=== PATIENT | male | born 1965 | race Caucasian/White ===

== ENCOUNTER → 2023-06-26 08:42 | Outpatient (CLI) | payer OTHER, SELFPAY ==
[2023-06-26 09:54] LABS: Add Manual Diff / Slide Review NO; Basophils Absolute Auto 0 /uL (0-100); Basophils Percent Auto 0.6 % (0-2); Eosinophils Absolute Auto 100 /uL (0-450); Eosinophils Percent Auto 1.5 % (2-4); Hematocrit 38.7 % (41-53); Hemoglobin 13.4 g/dL (13.5-17.5); Lymphocytes Absolute Auto 1500 /uL (1100-4500); Lymphocytes Percent Auto 23.4 % (25-40); Mean Corpuscular HGB Conc 34.6 % (30-36); Mean Corpuscular Hemoglobin 32.6 PG (26-34); Monocytes Absolute Auto 500 /uL (0-900); Monocytes Percent Auto 7.9 % (3-14); Neutrophils Absolute Auto 4400 /uL (1500-7000); Neutrophils Percent Auto 66.6 % (50-75); Platelet Count 205 X10^3/uL (150-400); Red Blood Cell Count 4.12 X10^6/uL (4.5-5.9); Red Cell Distribution Width 12.5 % (11.6-14.8); White Blood Cell Count 6.5 X10^3/uL (4.5-11.0)
[2023-06-26 10:22] LABS: Alanine Aminotransferase 19 IU/L (<50); Albumin 4.3 g/dL (3.5-5.0); Albumin Globulin Ratio 1.5 (1.0-2.8); Alkaline Phosphatase 53 U/L (38-126); Aspartate Aminotransferase 26 IU/L (17-59); BUN Creatinine Ratio 18.8 (6-22); Bilirubin Total 1.9 mg/dL (0.2-1.3); Blood Urea Nitrogen 19 mg/dL (9-20); Calcium 9.1 mg/dL (8.4-10.2); Carbon Dioxide 26 mmol/L (22-32); Chloride 104 mmol/L (98-107); Cholesterol 225 mg/dL (140-199); Estimated Glomerular Filt Rate > 60 mL/min (>60); Globulin 2.9 g/dL (1.7-4.1); Glucose 99 mg/dL (70-100); HDL Cholesterol 45 mg/dL (40-60); HEMOLYSIS < 15 (0-50); LDL Cholesterol Calculated 145 mg/dL (<100); Potassium 3.6 mmol/L (3.4-5.1); Sodium 139 mmol/L (137-145); Total Protein 7.2 g/dL (6.3-8.2); Triglycerides 173 mg/dL (35-150)
[2023-06-26 10:49] LABS: Prostate Specific Antigen 6.27 ng/mL (0.10-4.00)
== END ==
PROVIDERS: PCP Family Medicine; Referring Provider Family Medicine; Visit Provider Family Medicine
DX: Z00.00 Encounter for general adult medical examination without abnormal findings (principal); Z12.5 Encounter for screening for malignant neoplasm of prostate
CPT/HCPCS: 36415; 80053; 80061; 84153; 85025

== ENCOUNTER → 2023-08-03 16:37 | Outpatient (CLI) | payer OTHER, SELFPAY ==
[2023-08-03 17:20] LABS: Add Manual Diff / Slide Review NO; Basophils Absolute Auto 0 /uL (0-100); Basophils Percent Auto 0.8 % (0-2); Eosinophils Absolute Auto 100 /uL (0-450); Eosinophils Percent Auto 1.3 % (2-4); Hematocrit 39.1 % (41-53); Hemoglobin 13.5 g/dL (13.5-17.5); Lymphocytes Absolute Auto 1600 /uL (1100-4500); Lymphocytes Percent Auto 28.8 % (25-40); Mean Corpuscular HGB Conc 34.5 % (30-36); Mean Corpuscular Hemoglobin 32.8 PG (26-34); Monocytes Absolute Auto 400 /uL (0-900); Monocytes Percent Auto 6.7 % (3-14); Neutrophils Absolute Auto 3500 /uL (1500-7000); Neutrophils Percent Auto 62.4 % (50-75); Platelet Count 184 X10^3/uL (150-400); Red Blood Cell Count 4.11 X10^6/uL (4.5-5.9); Red Cell Distribution Width 12.6 % (11.6-14.8); White Blood Cell Count 5.5 X10^3/uL (4.5-11.0)
[2023-08-03 17:41] LABS: HEMOLYSIS < 15 (0-50); Iron 78 ug/dL (49-181)
[2023-08-03 17:51] LABS: Percent Iron Saturation 28 % (20-50); Total Iron Binding Capacity 280 ug/dL (261-462); Transferrin 230 mg/dL (206-381)
[2023-08-03 18:30] LABS: Vitamin B12 424 pg/mL (239-931)
[2023-08-06 09:28] LABS: PSA Free % 21.8 % (.); PSA, Total 2.2 ng/mL (0.0-4.0)
== END ==
LOC: LAB 16:38
PROVIDERS: PCP Family Medicine; Referring Provider Family Medicine; Visit Provider Family Medicine
DX: D64.9 Anemia, unspecified (principal); R97.20 Elevated prostate specific antigen [PSA]
CPT/HCPCS: 36415; 82607; 83540; 83550; 84153; 84154; 85025

== ENCOUNTER → 2024-02-08 16:23 | Outpatient (CLI) | payer OTHER, SELFPAY | PROVIDERS: PCP Family Medicine; Referring Provider Urology; Visit Provider Urology | DX: R97.20 Elevated prostate specific antigen [PSA] (principal) | CPT/HCPCS: 36415; 84153; 84154 ==

== ENCOUNTER → 2024-04-07 09:39 | Outpatient (CLI) | payer OTHER, SELFPAY | PROVIDERS: PCP Family Medicine; Visit Provider Urology | DX: N40.1 Benign prostatic hyperplasia with lower urinary tract symptoms (principal); N13.8 Other obstructive and reflux uropathy | CPT/HCPCS: 87086 ==

== ENCOUNTER → 2024-06-08 09:40 | Outpatient (CLI) | payer OTHER, SELFPAY ==
[2024-06-08 10:30] LABS: Add Manual Diff / Slide Review NO; Basophils Absolute Auto 0 /uL (0-100); Basophils Percent Auto 0.8 % (0-2); Eosinophils Absolute Auto 100 /uL (0-450); Eosinophils Percent Auto 1.5 % (2-4); Hematocrit 41.3 % (41-53); Hemoglobin 14.1 g/dL (13.5-17.5); Lymphocytes Absolute Auto 1000 /uL (1100-4500); Lymphocytes Percent Auto 24.8 % (25-40); Mean Corpuscular HGB Conc 34.2 % (30-36); Mean Corpuscular Hemoglobin 32.5 PG (26-34); Mean Corpuscular Volume 94.9 fL (80-100); Monocytes Absolute Auto 300 /uL (0-900); Monocytes Percent Auto 7.9 % (3-14); Neutrophils Absolute Auto 2600 /uL (1500-7000); Platelet Count 194 X10^3/uL (150-400); Red Blood Cell Count 4.36 X10^6/uL (4.5-5.9); Red Cell Distribution Width 12.1 % (11.6-14.8); White Blood Cell Count 3.9 X10^3/uL (4.5-11.0)
[2024-06-08 10:42] LABS: HEMOLYSIS < 15 (0-50); Iron 117 ug/dL (49-181)
[2024-06-08 10:45] LABS: Albumin 4.9 g/dL (3.5-5.0); Albumin Globulin Ratio 1.7 (1.0-2.8); Calcium 9.4 mg/dL (8.4-10.2); Carbon Dioxide 29 mmol/L (22-32); Chloride 100 mmol/L (98-107); Globulin 2.9 g/dL (1.7-4.1); Glucose 102 mg/dL (70-100); HDL Cholesterol 66 mg/dL (40-60); HEMOLYSIS < 15 (0-50); Potassium 4.4 mmol/L (3.4-5.1); Sodium 140 mmol/L (137-145); Total Protein 7.8 g/dL (6.3-8.2)
[2024-06-08 10:46] LABS: Alanine Aminotransferase 23 IU/L (<50); Alkaline Phosphatase 59 U/L (38-126); Aspartate Aminotransferase 26 IU/L (17-59); BUN Creatinine Ratio 21.7 (6-22); Bilirubin Total 1.5 mg/dL (0.2-1.3); Blood Urea Nitrogen 20 mg/dL (9-20); Cholesterol 196 mg/dL (140-199); Estimated Glomerular Filt Rate > 60 mL/min (>60); LDL Cholesterol Calculated 118 mg/dL (<100); Triglycerides 60 mg/dL (35-150)
[2024-06-08 10:54] LABS: Percent Iron Saturation 46 % (20-50); Total Iron Binding Capacity 252 ug/dL (261-462); Transferrin 232 mg/dL (206-381)
[2024-06-08 11:31] LABS: Vitamin B12 539 pg/mL (239-931)
[2024-06-09 12:12] LABS: PSA Free % 21.3 % (.); PSA, Total 3.8 ng/mL (0.0-4.0)
== END ==
PROVIDERS: PCP Family Medicine; Referring Provider Family Medicine; Visit Provider Family Medicine
DX: Z00.00 Encounter for general adult medical examination without abnormal findings (principal); N40.1 Benign prostatic hyperplasia with lower urinary tract symptoms; D64.9 Anemia, unspecified; N13.8 Other obstructive and reflux uropathy; E78.5 Hyperlipidemia, unspecified; R97.20 Elevated prostate specific antigen [PSA]
CPT/HCPCS: 36415; 80053; 80061; 82607; 83540; 83550; 84153; 84154; 85025

== ENCOUNTER 2025-01-07 17:36 | Emergency (ER) | payer OTHER, SELFPAY ==
[2025-01-07 17:44] VITALS: BP 116/66; PULSE 54; RESP 16; TEMP 37.4; O2SAT 100; BMI 21.7
--- NOTE | 2025-01-07 18:07 | ED.MALEGU ---
HPI - Male Genitourinary General Chief complaint: Urogenital-Male Stated complaint: Catheter Not Draining Properly, Blood In Urine Time Seen by Provider: 01/07/25 18:06 Source: patient Mode of arrival: Family Vehicle History of Present Illness HPI Narrative: 59-year-old male with history of BPH followed previously by local urologist Dr. Box who has retired, no prostate surgical interventions, was vacationing in [facility] and had urinary retention symptoms on Thursday 5 day ago, Vázquez catheter placed in [facility], returned to [facility] local area on Thursday 3 days ago, was planning to see local urologist Dr. Kiran in follow up, today had some urination around the tubing, and scant bloody appearance, no distraction of the tubing or local blunt trauma known. No fevers or chills. No flank pain. Some suprapubic discomfort. Related Data Home Medications ?Medication ?Instructions ?Recorded ?Confirmed ascorbic acid (vitamin C) 250 mg 250 mg PO DAILY 02/08/24 06/10/24 tablet cholecalciferol (vitamin D3) 25 25 mcg PO DAILY 02/08/24 06/10/24 mcg (1,000 unit) capsule ferrous sulfate 325 mg (65 mg 325 mg PO DAILY 02/08/24 06/10/24 iron) tablet (Feosol) multivitamin (Daily Multi-Vitamin 1 tab PO DAILY 02/08/24 06/10/24 tablet) omega-3 fatty acids-fish oil 360 1 cap PO DAILY 02/08/24 06/10/24 mg-1,200 mg capsule (Fish Oil) Previous Rx's ?Medication ?Instructions ?Recorded tamsulosin 0.4 mg capsule 0.4 mg PO DAILY #90 caps 02/08/24 tamsulosin 0.4 mg capsule 0.8 mg (2 x 0.4 mg) PO DAILY #180 04/12/24 caps cefdinir 300 mg capsule 300 mg PO BID 7 days #14 caps 01/07/25 Allergies Allergy/AdvReac Type Severity Reaction Status Date / Time No Known Drug Allergies Allergy Verified 01/07/25 17:52 Patient History Medical History (Updated 01/07/25 @ 21:04 by Karel Ortiz MD) Well adult exam Incomplete emptying of bladder History of tobacco use Secondhand smoke exposure Urinary retention BPH w urinary obs/LUTS History of BPH Anemia Elevated PSA Neck pain (~2003) Shingles (~2008) Chicken pox (~1972) Preventative health care Borderline hyperlipidemia Cervical spondylolysis Surgical History Hx of circumcision Anesthesia History of knee surgery (~1983) History of bilateral inguinal hernia repair (~2016) Family History Father History of heart disease Hyperlipidemia Hypertension Congestive heart failure Coronary artery disease Diabetes mellitus Grandfather Cancer Grandfather History of heart disease Mother Urinary tract infection Social History (Updated 03/16/24 @ 08:32 by Jose Mcmanus MA) marital status: number of children: 4 alcohol intake: never caffeine: Yes Type(s) of exercise: bicycling and running frequency: 3-4 times per week duration: 60-90 minutes/day Exam Narrative Exam Narrative: GENERAL: Well-developed patient, in mild distress. HEAD: Atraumatic. Normocephalic. EYES: Pupils equal round and reactive. Extraocular motions intact. No scleral icterus. No injection or drainage. ENT: Nose without bleeding, purulent drainage. Throat without erythema, tonsillar hypertrophy or exudate. Airway patent. NECK: Trachea midline. Non tender CARDIOVASCULAR: Regular rate and rhythm without murmurs, gallops, or rubs. RESPIRATORY: Clear to auscultation. Breath sounds equal bilaterally. No wheezes, rales, or rhonchi. GASTROINTESTINAL: Abdomen soft, non-tender, nondistended. : Vázquez catheter in place, leg bag without obvious blood, yellow fluid without clots in collection bag. Opaque tubing, no blood at meatus, unremarkable external genitalia without lesions, circumcised. EXTREMITIES: No edema or joint tenderness. BACK: Nontender without deformity or crepitance. No flank tenderness. NEURO: AOx3. Motor functions grossly nonfocal. SKIN: No rash or erythema of visible areas Initial Vital Signs Initial Vital Signs: Vital Signs Temperature 99.3 F 01/07/25 17:44 Pulse Rate 54 L 01/07/25 17:44 Respiratory Rate 16 01/07/25 17:44 Blood Pressure 116/66 01/07/25 17:44 Pulse Oximetry 100 01/07/25 17:44 Oxygen Delivery Method Room Air 01/07/25 17:44 Course Orders Ordered: Discontinued Medications Cefdinir (Cefdinir 300 Mg Capsule) 300 mg PO NOW ONE Stop: 01/07/25 21:05 Last Admin: 01/07/25 21:34 Dose: 300 mg Documented By: YOLA Vital Signs Vital signs: Vital Signs - 8 hr 01/07/25 17:44 Temperature 99.3 F Pulse Rate 54 L Respiratory Rate 16 Blood Pressure 116/66 Pulse Oximetry 100 Oxygen Delivery Method Room Air MDM - Male Genitourinary Lab Data Labs: Urine Dip Bedside Urine Glucose Negative Bedside Urine Bilirubin - Negative Bedside Urine Ketone - Negative Urine Specific [facility] 1.025 Bedside Urine Occult Blood +++ Bedside Urine pH 6 Bedside Urine Protein +/- 15 Bedside Urine Urobilinogen - Negative Bedside Urine Nitrite - Negative Bedside Urine Leukocytes +/- 15 Esterase MDM Narrative Medical decision making narrative: 59-year-old male with recent Vázquez catheter placement 5 days ago in [facility] while on vacation for urinary retention, to [facility] 3 days ago, awaiting local urology follow up, had some urination around the catheter today, and some blood appearance in the collection bag. No trauma. No blood thinners. Afebrile, sirs screen negative. Unremarkable physical exam, no obvious blood/clots in urine bag. Urinalysis pending. Laboratory has switch backup has mat response, can not obtain return urinalysis at this time. We will dip urine, if positive for blood and/or infection consider empiric treatment for infection. If negative consider further follow up as an outpatient, versus CT abdomen and pelvis imaging. Patient in agreement. Await urine dip test results for now. Urine dip positive for blood and LE. No UA availble due to lab issues. Urine culture ordered. Will treat for UTI. Patient in agreement, given oral dose Cefdinir. Rx sent to his requested pharmacy. [place] home with , FU with local urologist this week advised. Keep foly in place for now, continue his chronic Flomax. Return precautions discussed. (late entry, later UA from lab once in-house lab back in serivce did look suspicious for UTI, as did the initial dip, urine culture was ordered prior) Discharge Plan Departure Patient Disposition: Home Clinical Impression: Urinary tract infection Activity Restrictions/Additional Instructions: Recent urinary catheter placement while on vacation in [facility] about 5 days ago, subsequent returned to the [facility] home area 3 days ago, intending to have local follow up with Urology, taking longstanding tamsulosin medication for BPH, noted to have drainage around the catheter site today, and some blood. No fever on triage. Urine full analysis unfortunately could not be performed today due to a laboratory sewage problem and temporary closure of the lab. Urine dip testing was positive for blood and leukocyte esterase, suspicious for infection. Urine culture was requested which could be performed. We will start antibiotics for urinary tract infection. First dose of cefdinir antibiotic given in the emergency department, with prescription for further course of antibiotic sent to your requested pharmacy. Take antibiotics as directed. Continue with catheter in place for now. Follow up with local urologist Dr. Kiran, call his office on Thursday during open hours. Return earlier to this/nearest emergency department for any change worsening symptoms or any concerns prior. Prescriptions: New cefdinir 300 mg capsule 300 mg PO BID 7 Days Qty: 14 0RF No Action tamsulosin 0.4 mg capsule 0.8 mg PO DAILY Qty: 180 3RF multivitamin [Daily Multi-Vitamin] Tablet 1 tab PO DAILY ferrous sulfate [Feosol] 325 mg (65 mg iron) tablet 325 mg PO DAILY omega-3 fatty acids-fish oil [Fish Oil] 360-1,200 mg capsule 1 cap PO DAILY cholecalciferol (vitamin D3) 25 mcg (1,000 unit) capsule 25 mcg PO DAILY ascorbic acid (vitamin C) 250 mg tablet 250 mg PO DAILY tamsulosin 0.4 mg capsule 0.4 mg PO DAILY Qty: 90 3RF Referrals: Jorge L Kiran DO [Physician, Urology] Dinesh Link DO [Primary Care Provider, Family Practice] Stand Alone Forms: Patient Portal/API
--- NOTE | 2025-01-07 19:45 | PC.NURSE ---
Vázquez irrigated, small clots expelled from catheter. Urine flowing freely.
--- NOTE | 2025-01-07 20:35 | PC.NURSE ---
Bladder scan shows zero urine in bladder.
[2025-01-07] MEDS: CEFDINIR 300 MG CAPSULE PO (21:34)
== END 2025-01-07 21:37 | disposition home or self-care (01) ==
PROVIDERS: Emergency Provider Emergency Medicine; PCP Family Medicine
DX: N39.0 Urinary tract infection, site not specified (principal); R10.30 Lower abdominal pain, unspecified
CPT/HCPCS: 81003; 99283

== ENCOUNTER → 2025-02-02 15:06 | Outpatient (CLI) | payer OTHER, SELFPAY | PROVIDERS: PCP Family Medicine; Visit Provider Urology | DX: N40.1 Benign prostatic hyperplasia with lower urinary tract symptoms (principal); R33.9 Retention of urine, unspecified | CPT/HCPCS: 87077; 87086; 87186 ==

== ENCOUNTER 2025-02-07 06:22 | Day surgery (SDC) | payer OTHER, SELFPAY ==
[2025-01-31 10:47] VITALS: BMI 21.7
--- NOTE | 2025-02-07 | PATH_ITS ---
[facility] Accession Number: [id number] No. of containers..01 Tissue . 01 Material submitted: . prostate - PROSTATE CHIPS . 01 Diagnosis: PROSTATE CHIPS (WEIGHT 23 GRAMS): Benign prostatic tissue with stromal and glandular hyperplasia and patchy chronic inflammation. Negative for significant atypia or malignancy. [facility] 02/21/2025 1223 Local . 01 Electronically signed: . Barbara Albert MD, Pathologist NPI- [id number] . 01 Gross description: . The specimen is received in formalin with two patient identifiers and prostate chips and consists of a 6.5 x 5.2 x 0.1 cm, 23 gram aggregate of perdomo brown, focally cauterized, rubbery, morcellated tissues admixed with clotted blood. Credit Reporter sections of the rubbery soft tissue are submitted in cassettes A1-A8 (approximately 80% of the rubbery soft tissue is submitted). ([id number]) /MRV 02/08/2025 1909 Local . 01 Pathologist provided ICD-10: N40.1 . 01 CPT . 489659 Specimen Comment: A courtesy copy of this report has been sent to [facility] Pathology Performed at: 01 [facility] [address] [address], [place], [place] [id number] MD Brian Almazan MD Phone: [phone]
[2025-02-07] MEDS: LACTATED RINGERS 1,000 ML 42 ML IV (07:19)
[2025-02-07 07:21] VITALS: BP 118/71; PULSE 44; RESP 16; TEMP 36.2; O2SAT 100
--- NOTE | 2025-02-07 07:35 | PM.PREOP ---
Pre-operative Note COVID-19 COVID-19 status: Not tested Interval Note History & Physical reviewed/Exam performed by Physician: Yes Changes to H&P: No
[2025-02-07] MEDS: levoFLOXacin 500 MG/100 ML PIGGYBACK 100 MG IV (07:55)
--- NOTE | 2025-02-07 08:16 | SUR.OPER ---
Lithotomy on padded OR bed, head on pillow, arms secured on padded arm boards at <90 degrees abduction. Legs secured in padded yellow fins stirrups. Confirmed by surgeon
[2025-02-07 09:26] VITALS: BP 140/71; PULSE 58; RESP 16; TEMP 36.2; O2SAT 98
--- NOTE | 2025-02-07 09:31 | PM.OP.1 ---
Operative Date/Time/Diagnoses Date of procedure: 02/07/25 Time of procedure: 08:00 Pre-op diagnosis: Benign prostatic hyperplasia with lower urinary tract symptoms Post-op diagnosis: same Procedure & Clinicians Procedure: Cystoscopy Aquablation Same procedure(s) as scheduled: Yes Indications: 59 y/o M noted to have symptoms consistent w/ BPH and LUTS that are currently managed w/ Tamsulosin 0.8mg daily, although he is in urinary retention requiring a pleitez catheter. Discussed treatment options to include observation vs the possible addition of Finasteride 5mg daily (discussed possible side effects to include decreased libido, worsening erectile dysfunction, loss of ejaculate volume as well as painful breast development or nipple tenderness), or a lower urinary tract evaluation prior to a bladder outlet procedure. Discussed absolute indications for treatment either medically or surgically to include: urinary retention, development of large bladder stones, refractory gross hematuria, recurrent urinary tract infections and renal dysfunction. Reviewed that his cystoscopy and TRUS prostate were notable for coaptating lateral prostatic lobes w/o an intravesical median lobe and a volume of 68g. Discussed that he otherwise would be a candidate for Aquablation. Discussed risks of the procedure to include but not limited to pain, bleeding, infection, injury to urethra/bladder/either ureteral orifice, clot retention, irritative voiding symptoms for several months following the procedure, urinary incontinence, erectile dysfunction, retrograde ejaculation, need for open emergent repair of any bladder or ureteral injuries, urethral stricture or bladder neck contracture development, need for repeat procedures. After careful consideration of his treatment options, he returns today to further discuss an Aquablation procedure. Surgeon: Jorge L Kiran Assisted?: No Anesthesia Type: General Operative Notes Findings: Coaptating lateral prostatic lobes, small intravesical median lobe Closure Type: not applicable Specimen(s): other (prostate chips) Applied: catheter Estimated Blood Loss (mL): 50 Blood products transfused: none Procedure in detail: After informed consent was obtained, the patient was identified brought to the operating room where he was placed in his supine position on the table.? Once there anesthesia was induced and maintained.? Ensuring an adequate level of anesthesia the patient was transitioned to the lithotomy position where after time-out he was prepped.? After prepping, ensuring an adequate level of anesthesia, administration IV antibiotics and time-out 60 cc of ultrasound gel was instilled within the rectum and the ultrasound probe which had been attached to the TRUS stepper which was attached to the TRUS stepper articulating arm which was secured to the bed was advanced into the rectum under direct vision via the ultrasound.? The ultrasound probe was then aligned and confirmation made that the prostate was centered and aligned in both the sagittal and transverse views.? The bladder neck, verumontanum, central and transitional zones were identified.? With the ultrasound in place and adjusted the patient was then draped in a sterile fashion. With the patient draped the 24 Tajik aqua beam handpiece was then inserted through the urethra and advanced into the bladder.? Cystoscopy was then performed and no concerning bladder mass or lesions were noted.? Bilateral ureteral orifices were noted to be orthotopic in nature.? As the cystoscope was advanced the level of the sphincter, verumontanum, bladder neck were all identified via ultrasound and under direct vision.? The aqua beam hand place was then secured to the handpiece articulating arm which had been secured to the bed.? The Aquablation handpiece and TRUS probe were confirmed to be parallel and colinear.? Confirmation was then made that the aqua beam handpiece and nozzle was centered and anterior to the bladder neck.? The cystoscope was then retracted under direct vision in the sphincter and verumontanum were identified.? The tip of the cystoscope was then placed proximal to the external sphincter.? Compression was applied with the TRUS probe to the prostate.? The alignment of the TRUS probe and aqua beam handpiece was once again confirmed.? Horizontal alignment of the handpiece water jet was then performed.? With these adjustments made, the treatment zones were then planned using real-time ultrasound.? In the largest transverse view of the prostate the depth and radial angles were determined and set again in the transverse view of the prostate.? In the longitudinal and sagittal view the Aquablation nozzle was identified and its position registered with the software and robot.? The treatment contours were then determined and adjusted to reflect the intended margins of resection.? Following our plan confirmation, the Aquablation resection treatment was started.? A 2nd pass was then completed in similar fashion after the 1st pass had been completed.? At this point, the Aqua hand piece was removed from the urethra. The 26Fr resectoscope was then inserted into the urethra and cystoscopy was repeated.? The Elik boring mill set up operator vertical was utilized to evacuate the blood clots from the bladder.? The bladder neck was then resected using the bipolar Gyrus loop.? Bilateral ureteral orifices were again identified and noted to be intact at case end.? Hemostasis was obtained and noted to be excellent at case end.? The resectoscope was then removed and a 24Fr Rosanna 3-way hematuria catheter was inserted through the urethra and into the bladder.? 45cc of sterile water was utilized for balloon insufflation.? Efflux was noted to be clear at case end.? Anesthesia was reversed, he was extubated in the OR and transferred to the PACU in stable condition for recovery. Complications: none Post-operative Condition: stable Disposition: PACU Plan for aftercare: Will continue to run CBI for a few hours to evaluate the efflux from his catheter.? Should it remain relatively clear and with minimal blood clots, will discharge home with catheter in place and have him return to Urology clinic in 2 days for a voiding trial.? Should his efflux remain red or have significant clot burden, will admit overnight for observation and continued CBI.
[2025-02-07 09:32] VITALS: BP 134/59; PULSE 56; RESP 13; TEMP 36.3; O2SAT 100
[2025-02-07 09:37] VITALS: BP 118/65; PULSE 56; RESP 14; TEMP 36.2; O2SAT 100
[2025-02-07 12:30] VITALS: BP 110/60; PULSE 48; RESP 14; TEMP 36.1; O2SAT 98
== END 2025-02-07 13:30 | disposition home or self-care (01) ==
PROVIDERS: PCP Family Medicine; Referring Provider Urology; Visit Provider Urology
PROC: 0VT08ZZ Resection of Prostate, Via Natural or Artificial Opening Endoscopic (ICD-10-PCS; CPT 0421T; principal; 2025-02-07 07:45)
DX: N40.1 Benign prostatic hyperplasia with lower urinary tract symptoms (principal); N13.9 Obstructive and reflux uropathy, unspecified; R33.9 Retention of urine, unspecified
CPT/HCPCS: 0421T; C2596; J0330; J1100; J1171; J1956; J2250; J2405; J2704; J3010; J3490; J7120

== ENCOUNTER → 2025-02-09 13:54 | Outpatient (CLI) | payer OTHER, SELFPAY | PROVIDERS: PCP Family Medicine; Visit Provider Urology | DX: R39.9 Unspecified symptoms and signs involving the genitourinary system (principal) | CPT/HCPCS: 87086 ==

== ENCOUNTER → 2025-03-20 09:40 | Outpatient (CLI) | payer OTHER, SELFPAY | PROVIDERS: PCP Family Medicine; Visit Provider Urology | DX: R30.0 Dysuria (principal) | CPT/HCPCS: 87086 ==